=== PATIENT | male | born 1945 | race Caucasian/White ===

== ENCOUNTER 2019-01-06 18:18 | Inpatient (IN) ==
--- NOTE | 2019-01-06 19:13 | Emergency Department Note ---
Disposition Clinical Impression: Shortness of breath, COPD exacerbation, Lung mass, ADAM (acute kidney injury), Dehydration Disposition: Admitted As Inpatient Condition: Fair Time of Disposition: 22:29 SOB HPI - General Chief Complaint: ED Shortness of Breath/Dyspnea Stated Complaint: SOB Time Seen by Provider: 01/06/19 18:56 Source: patient Mode of arrival: private vehicle Limitations: no limitations Nursing Notes Reviewed: Yes Vital Signs Reviewed: Yes - History of Present Illness Patient is a 73-year-old male with past medical history including hypertension, COPD, active tobacco use, diabetes mellitus type 2, hyperlipidemia, presenting with chief complaint of shortness of breath. The patient states he has been having shortness of breath for the past 3-4 weeks. He complains of a productive cough. He also states he has lost a significant amount of weight, about 12 pounds in the past month. He was diagnosed with a pneumonia week ago. He was initially started on Levaquin which she could not tolerate secondary to hamstring problems. This stopped after stopping Levaquin. His antibiotics were switched to Omnicef and doxycycline for his primary care physician. He completed the course of antibiotics today. He also finished a course of penicillin. He still complains of shortness of breath and wheezing. He followed up with his primary care physician today, Dr. Porter, who advised the patient come to the emergency department to be treated and admitted for IV antibiotics, IV hydration and breathing treatments. He denies fevers or chills, chest pain, abdominal pain, nausea or vomiting, diarrhea. - Related Data Home Medications Medication Instructions Recorded Confirmed Allopurinol [Zyloprim] 300 mg PO DAILY 02/25/17 02/25/17 Aspirin [Lo-Dose Aspirin EC] 81 mg PO DAILY 02/25/17 02/25/17 Folic Acid 0.4 mg PO DAILY 02/25/17 02/25/17 Glimepiride [Amaryl] 2 mg PO DAILY 02/25/17 02/25/17 Loperamide HCl [Anti-Diarrheal] 2 - 4 mg PO DAILY PRN 02/25/17 02/25/17 Losartan/HCTZ [Hyzaar 50-12.5 1 tab PO DAILY 02/25/17 02/25/17 Tablet] Metoprolol [Lopressor] 50 mg PO BID 02/25/17 02/25/17 Nitroglycerin [Nitrostat] 0.4 mg SL Q5M PRN 02/25/17 02/25/17 [place]-3/Dha/Epa/Fish Oil [Fish Oil 1 cap PO DAILY 02/25/17 02/25/17 1,000 mg Softgel] Simvastatin [Zocor] 10 mg PO DAILY 02/25/17 02/25/17 Allergies Allergy/AdvReac Type Severity Reaction Status Date / Time No Known Allergies Allergy Verified 02/25/17 08:02 All systems ED: reviewed and negative except as stated. Review of Systems: As Per HPI Constitutional: Reports: weight change. Denies: fever, chills Cardiovascular: Denies: chest pain, palpitations Respiratory: Reports: cough, dyspnea Gastrointestinal: Denies: abdominal pain, nausea, vomiting, diarrhea Genitourinary: Denies: dysuria, hematuria Musculoskeletal: Denies: back pain Neurological: Reports: weakness. Denies: headache, numbness, paresthesias, confusion Past Medical History - Past Medical History Attestation: Yes The following information was validated with the patient. Source: patient Medical history: Reports: diabetes, hypertension Surgical history: Reports: carotid endarterectomy, colectomy, coronary bypass (CABG), herniorrhaphy, other Psychiatric history: Reports: no psych history - Social History Smoking Status: Current every day smoker Alcohol use: Reports: occasionally Drug use: Reports: none Physical Exam - General Limitations: no limitations General appearance: alert, in no apparent distress - Head Head exam: atraumatic, normocephalic, normal inspection - Eye Eye exam: Present: normal appearance, EOMI - ENT ENT exam: mucous membranes dry - Neck Neck exam: Present: normal inspection, trachea midline - Chest Chest inspection: Present: normal inspection, symmetric chest wall rise - Respiratory Respiratory exam: Present: other (Diminished breath sounds bilateral bases with expiratory wheezing, no accessory muscle use, no hypoxia, no conversational dyspnea) - Cardiovascular Cardiovascular exam: Present: regular rate, normal rhythm, normal heart sounds - Abdominal Exam Abdominal exam: Present: soft, Non-Tender. Absent: distention, guarding, hilary ound - Extremities Exam Extremities exam: Present: normal capillary refill. Absent: pedal edema, calf tenderness - Neurological Exam Neurological exam: Present: alert, oriented X3 - Psychiatric Psychiatric exam: Present: normal affect, normal mood - Skin Skin exam: Present: warm, dry. Absent: diaphoresis, pallor Course Vital Signs Temperature 97.5 F L 01/06/19 18:27 Pulse Rate 81 01/06/19 18:27 Respiratory Rate 18 01/06/19 18:27 Blood Pressure 123/73 01/06/19 18:27 O2 Sat by Pulse Oximetry 94 01/06/19 18:27 Temperature 97.5 F L 01/06/19 18:27 Pulse Rate 78 01/06/19 22:03 Respiratory Rate 17 01/06/19 22:11 Blood Pressure 116/53 01/06/19 22:03 O2 Sat by Pulse Oximetry 98 01/06/19 22:11 Oxygen Delivery Oxygen Delivery Room Air Shortness of Breath/Dyspnea - MDM Narrative Medical decision making narrative: Patient is presenting from his primary care physician's office for concerns of failed outpatient treatment for pneumonia. He would like the patient to be admitted for IV hydration, IV antibiotics. We will obtain repeat chest x-ray, EKG, CBC, BMP, lactate, blood cultures, troponin. We will give him DuoNeb treatments for the wheezing. He just finished a course of steroids. He will likely need azithromycin and Rocephin for IV antibiotics if he has continued pneumonia. Likely community-acquired as he has no recent hospital admissions. Not requiring oxygen at this time. 20:30 Labs and imaging were reviewed. He has a normal white blood count, no lactic acidosis. He is afebrile here. Chest x-ray showed persistent consolidation right lower lobe which could represent pneumonia. There is also a somewhat lobular appearance. Chest CTA was recommended. We will obtain a CT chest at this time. We will give the patient IV fluids for ADAM. Troponin less than 0.03, BNP normal. No acute ischemic changes on EKG. 22:00 CTA chest shows no evidence of pulmonary embolism however there is a piece subcarinal adenopathy contiguous with right perihilar mass and adenopathy which results in attenuation of bronchovascular structures of the right hilum. There is also bulky lobulated masslike consolidation within the posterior right lower lobe that is either neoplasm and/or dense airspace disease. Discussed with admitting hospitalist, Dr. Gresham, we will place the patient on IV azithromycin and Rocephin to cover for pneumonia. He will likely need to be seen by pulmonology as well as hematology/oncology. He remains medically stable at this time. - Medical Records Medical records reviewed: Yes I reviewed the patient's medical records. - Lab Data Lab results reviewed: Yes I reviewed the patient's lab results. Result diagrams: 01/06/19 19:15 01/06/19 19:15 Lab Results 01/06/19 01/06/19 01/06/19 Range/Units 19:15 19:15 19:15 WBC 11.1 (4.3-11.1) K/mcL RBC 4.33 (4.19-5.50) M/mcL Hgb 14.6 (12.9-16.9) g/dL Hct 42.2 (37.5-50.1) % MCV 97.5 (83.0-100.0) fL MCH 33.7 H (28.0-33.3) pg MCHC 34.6 (31.6-35.5) g/dL RDW 12.6 (11.5-14.5) % Plt Count 245 (140-400) K/mcL MPV 10.5 (9.4-12.4) fL Immature Gran % 0.5 (0-4) % Seg Neutrophils % 78.6 % Lymphocytes % 11.8 % Monocytes % 6.9 % Eosinophils % 1.7 % Basophils % 0.5 % Neutrophils # 8.7 (1.6-8.9) K/mcL Lymphocytes # 1.3 (0.6-4.6) K/mcL Monocytes # 0.8 (0.0-1.3) K/mcL Eosinophils # 0.2 (0.0-0.6) K/mcL Basophils # 0.1 (0.0-0.2) K/mcL Sodium 136 (136-145) mEq/L Potassium 4.2 (3.5-5.1) mEq/L Chloride 104 (98-107) mEq/L Carbon Dioxide 24 (23-29) mEq/L BUN 39 H (8-23) mg/dL Creatinine 1.56 H (0.70-1.30) mg/dL Est GFR ( Amer) 53 L (> 60) Est GFR (Non-Af Amer) 44 L (> 60) BUN/Creatinine Ratio 25 (6-26) Glucose 186 H (70-105) mg/dL Calculated Osmolality 296 (280-300) Lactic Acid 1.3 (0.5-2.2) mmol/L Calcium 9.8 (8.6-10.3) mg/dL Troponin I < 0.03 (< 0.04) ng/mL B-Natriuretic Peptide (Less than 100) pg/mL 01/06/19 Range/Units 19:15 WBC (4.3-11.1) K/mcL RBC (4.19-5.50) M/mcL Hgb (12.9-16.9) g/dL Hct (37.5-50.1) % MCV (83.0-100.0) fL MCH (28.0-33.3) pg MCHC (31.6-35.5) g/dL RDW (11.5-14.5) % Plt Count (140-400) K/mcL MPV (9.4-12.4) fL Immature Gran % (0-4) % Seg Neutrophils % % Lymphocytes % % Monocytes % % Eosinophils % % Basophils % % Neutrophils # (1.6-8.9) K/mcL Lymphocytes # (0.6-4.6) K/mcL Monocytes # (0.0-1.3) K/mcL Eosinophils # (0.0-0.6) K/mcL Basophils # (0.0-0.2) K/mcL Sodium (136-145) mEq/L Potassium (3.5-5.1) mEq/L Chloride (98-107) mEq/L Carbon Dioxide (23-29) mEq/L BUN (8-23) mg/dL Creatinine (0.70-1.30) mg/dL Est GFR ( Amer) (> 60) Est GFR (Non-Af Amer) (> 60) BUN/Creatinine Ratio (6-26) Glucose (70-105) mg/dL Calculated Osmolality (280-300) Lactic Acid (0.5-2.2) mmol/L Calcium (8.6-10.3) mg/dL Troponin I (< 0.04) ng/mL B-Natriuretic Peptide 37 (Less than 100) pg/mL - Radiology Data Radiology results reviewed: Yes I reviewed the patient's radiology results. Chest X-Ray 01/06/19 19:00 IMPRESSION: Persistent consolidation right lower lobe could represent pneumonia. However, this does have a somewhat lobular appearance. A chest CT is suggested to evaluate for a mass lesion D/ / Ryan Trevino MD / Ryan Trevino MD Interpreting Provider: Ryan Trevino MD Chest CTA 01/06/19 20:48 IMPRESSION: No evidence of pulmonary embolism. Bulky subcarinal adenopathy, contiguous with right perihilar mass/adenopathy which results in attenuation of bronchovascular structures of the right hilum. There is bulky lobulated masslike consolidation within the posterior right lower lobe, neoplasm and/or dense airspace disease. PET-CT would be helpful to further evaluate. D/ / Erinn Mccabe Cha, MD / Erinn Mccabe Cha, MD Interpreting Provider: Erinn Mccabe Cha, MD - EKG Data EKG attestation: Yes I reviewed and interpreted this EKG. EKG results narrative: EKG obtained at 191 shows sinus rhythm with heart rate 79, ME interval 177, QRS duration 86, QTC 431. No ST elevation or depression. Flattened T waves throu ghout. Attestation Statement - Attestation Attestation: I, Rony Horn, examined this patient and my medical decision-making was reviewed with the SILK WORKER/PA/Advanced Practice Nurse/Resident Physician. I agree with the documented findings, disposition and treatment plan as described except to the extent set forth below. 73-year-old male presents emergency department for evaluation of shortness of breath or cough. Patient states he states he multiple different antibiotics without improvement of symptoms. Patient states he is since emergency department by his primary care provider for for continuation of care. Chest x- ray shows possible right lower lobe pneumonia versus mass. CT was ordered for further clarification. CT showed possible neoplasm versus dense airspace disease. Patient will be admitted to the hospitalist for further care and evaluation of possible new malignancy. He was started on antibiotics emergency department. It is unlikely that this is infection however with multiple rounds of antibiotics at home, no fever, no leukocytosis. Patient is comfortable with this plan of action.
[2019-01-06 19:34] LABS: Basophils # 0.1 K/mcL (0.0-0.2); Basophils % 0.5 %; Eosinophils # 0.2 K/mcL (0.0-0.6); Eosinophils % 1.7 %; Hematocrit 42.2 % (37.5-50.1); Hemoglobin 14.6 g/dL (12.9-16.9); Immature Granulocytes % 0.5 % (0-4); Lymphocytes # 1.3 K/mcL (0.6-4.6); Lymphocytes % 11.8 %; Mean Corpuscular HGB Conc 34.6 g/dL (31.6-35.5); Mean Corpuscular Hemoglobin 33.7 pg (28.0-33.3); Mean Corpuscular Volume 97.5 fL (83.0-100.0); Mean Platelet Volume 10.5 fL (9.4-12.4); Monocytes # 0.8 K/mcL (0.0-1.3); Monocytes % 6.9 %; Neutrophils # 8.7 K/mcL (1.6-8.9); Platelet Count 245 K/mcL (140-400); Red Blood Count 4.33 M/mcL (4.19-5.50); Red Cell Distribution Width 12.6 % (11.5-14.5); Segmented Neutrophils % 78.6 %
[2019-01-06 19:51] LABS: BUN/Creatinine Ratio 25 (6-26); Blood Urea Nitrogen 39 mg/dL (8-23); Calcium 9.8 mg/dL (8.6-10.3); Carbon Dioxide 24 mEq/L (23-29); Chloride 104 mEq/L (98-107); Glucose 186 mg/dL (70-105); Osmolality,Calculated 296 (280-300); Potassium 4.2 mEq/L (3.5-5.1); Sodium 136 mEq/L (136-145); eGFR For Non-African Americans 44 (> 60)
[2019-01-06 19:52] LABS: Troponin I < 0.03 ng/mL (< 0.04)
[2019-01-06] MEDS ORDERED: Isovue-370 500 ML BOTTLE IVP ONE (20:41)
[2019-01-06] MEDS ORDERED: 0.9 % Sodium Chloride 1,000 ML IVC ONE (21:07)
[2019-01-06] MEDS ORDERED: Ipratropium/Albuterol Neb 3 ML IH ONE (21:55)
[2019-01-06] MEDS ORDERED: cefTRIAXone 1,000 MG in Water for inj. (sterile) 20 ML 10 ML IVP ONE (22:05)
[2019-01-06] MEDS ORDERED: Azithromycin 500 MG in D5% in Water 250 ML IVPB ONE (22:05)
--- NOTE | 2019-01-07 00:40 | Internal Med History&Physical ---
<Lester Lovell S - Last Filed: 01/07/19 04:14> Date of Encounter: 01/07/19 Time of Encounter: 01:12 Internal Medicine - H&P: HPI Chief complaint: SOB Admitted From: Home History of present illness: Mr. Avilez is a 73 year old male with PMH of diabetes, COPD, tobacco abuse, HLD, hypertension, and CAD. He presents from home with the chief complaint of SOB. He was recently treated as an outpatient for community acquired PNA with levaquin, which was subsequently switched to doxycycline and omnicef after he developed tendinopathy. He completed his course of abx yesterday and continued to have SOB and has been coughing up sputum. He states that he has lost about 20 lbs in the last 3 mos and that this has been unintentional. He also states that he has continued to have excessive wheezing and sputum production. He was told to come to the ER by his primary care physician. He denies any fevers/chills. He has had a diminsihed appetite. He denies chest pain, SOB, abdominal pain, or hemoptysis. In the ER he was found to have concerning findings on his XR chest and CT scan showed a possible masslike lesion in the chest. He was given a dose of rocephin and zithromax in the ER. He will be admitted to the hospital for further ev aluation. Past Med Surg Social Fam HX - Past Medical History Medical history: cardiomyopathy, diabetes, hypertension Psychiatric history: no psych history - Past Surgical History Surgical History: colectomy, coronary bypass (CABG), herniorrhaphy, vasectomy Additional surgical history: left neck parotid tumor removal, "part of colon removed" - Social History Smoking Status: Current every day smoker Packs per day: 1/2 Smokeless Tobacco Status: No Alcohol use: occasionally Drug use: none - Family History Mother Living Status: Hx Family Cancer: Yes (Cervical) Hx Family Endocrine Disorder: Yes (DM) Hx Family Autoimmune Disorders: Yes (arthritis) Father Living Status: Cause of : [place] Hx Family Cardiac Disorders: Yes ([place]) Internal Medicine - H&P: Meds Allopurinol [Zyloprim] 300 mg PO DAILY 02/25/17 [History] Aspirin [Lo-Dose Aspirin EC] 81 mg PO DAILY 02/25/17 [History] Folic Acid 200 mcg PO DAILY 02/25/17 [History] Glimepiride [Amaryl] 2 mg PO DAILY 02/25/17 [History] Loperamide HCl [Anti-Diarrheal] 2 - 4 mg PO DAILY PRN 02/25/17 [History] Losartan/HCTZ [Hyzaar 50-12.5 Tablet] 1 tab PO DAILY 02/25/17 [History] Metoprolol [Lopressor] 50 mg PO BID 02/25/17 [History] Nitroglycerin [Nitrostat] 0.4 mg SL Q5M PRN 02/25/17 [History] [place]-3/Dha/Epa/Fish Oil [Fish Oil 1,000 mg Softgel] 1 cap PO BID 02/25/17 [History] Simvastatin [Zocor] 10 mg PO HS 02/25/17 [History] Cholecalciferol (D-3) [Vitamin D] 1,000 unit PO DAILY 01/06/19 [History] Cyanocobalamin (Vitamin B-12) [Vitamin B12] 1,000 mcg PO DAILY 01/06/19 [History ] Gluc Nazario/Chondro Nazario A/Vit C/Mn [Glucosamine Chondroitin Tab] 1 tab PO BID 01/06/19 [History] Allergy/AdvReac Type Severity Reaction Status Date / Time No Known Allergies Allergy Verified 02/25/17 08:02 All Systems PM: A 10-system review of systems was performed and is negative for pertinent findings except as documented above in the HPI. - Constitutional Constitutional: anorexia, weight loss (20 lbs), no chills, no fever(s), no night sweats - EENT Eyes: no change in vision, no decreased night vision Ears: no tinnitus Nose, mouth and throat: no bleeding gums, no epistaxis - Cardiovascular Cardiovascular ROS IM: dyspnea, dyspnea on exertion, no chest pain - Respiratory Respiratory: cough, dyspnea, dyspnea on exertion, wheezing, chest congestion, excessive phlegm production - Gastrointestinal Gastrointestinal: no abdominal pain, no diarrhea, no nausea, no vomiting - Genitourinary Genitourinary ROS male: no difficulty urinating, no hematuria - Musculoskeletal Musculoskeletal ROS IM: no stiffness, no tingling - Integumentary Integumentary IM: no rash, no unusual bruising - Neurological Neurological ROS: weakness, no numbness, no tingling - Psychiatric Psychiatric: no anxiety, no depression - Hematologic/Lymphatic Hematologic/Lymphatic: no easy bleeding, no easy bruising - Constitutional Vitals: Temp Pulse Resp BP Pulse Ox 97.7 F 126 92 121/72 98 01/06/19 23:57 01/06/19 23:57 01/06/19 23:57 01/06/19 23:57 01/06/19 22:11 Exam: general - aox3, nad, laying in bed comfortably heent - ncat, MMM, no scleral icterus cardio - tacycardia, s1s2, cta no mrg lungs - rhonchi and coarse breath sounds in all lung munoz, wheezing present abd - soft, NTND, no peritoneal signs no rebound or guarding extremities - moves all extremities equally and w/o difficulty, no pitting edema present neuro - no FND, sensation and strength intact skin - intact, warm, dry psych - appropriate mood and affect Internal Med - H&P Results - Labs CBC & Chem 7: 01/06/19 19:15 01/06/19 19:15 Labs: Short CBC 01/06/19 Range/Units 19:15 WBC 11.1 (4.3-11.1) K/mcL Hgb 14.6 (12.9-16.9) g/dL Hct 42.2 (37.5-50.1) % Plt Count 245 (140-400) K/mcL Neutrophils # 8.7 (1.6-8.9) K/mcL BMP 01/06/19 19:15 Sodium 136 Potassium 4.2 Chloride 104 Carbon Dioxide 24 BUN 39 H Creatinine 1.56 H Glucose 186 H Calcium 9.8 Cardiac Enzymes 01/06/19 Range/Units 19:15 Troponin I < 0.03 (< 0.04) ng/mL - Impressions ITS Impressions Chest X-Ray 01/06/19 19:00 IMPRESSION: Persistent consolidation right lower lobe could represent pneumonia. However, this does have a somewhat lobular appearance. A chest CT is suggested to evaluate for a mass lesion D/ / Ryan Trevino MD / Ryan Trevino MD Interpreting Provider: Ryan Trevino MD Chest CTA 05/30/19 20:48 IMPRESSION: No evidence of pulmonary embolism. Bulky subcarinal adenopathy, contiguous with right perihilar mass/adenopathy which results in attenuation of bronchovascular structures of the right hilum. There is bulky lobulated masslike consolidation within the posterior right lower lobe, neoplasm and/or dense airspace disease. PET-CT would be helpful to further evaluate. D/ / Erinn Mccabe Cha, MD / Erinn Mccabe Cha, MD Interpreting Provider: Erinn Mccabe Cha, MD - Assessment and Plan (1) Pneumonia Current Visit: Yes Status: Acute Assessment and plan: Suspected CAP. Pt presented after outpatient tx failure for PNA - was on levaquin PO, which cause tendinitis and was switched to doxycycline/omnicef - finished last dose of abx yesterday morning, continued to have SOB and sputum production - endorses 20 lbs weight loss in the last 3 mos, unintentional XR chest from admission: consolidation right lower lobe could represent pneumonia, does have a somewhat lobular appearance. CT chest from admission: negative for PE Bulky subcarinal adenopathy, contiguous with right perihilar mass/adenopathy which results in attenuation of bronchovascular structures of the right hilum. There is bulky lobulated masslike consolidation within the posterior right lower lobe, neoplasm and/or dense airspace disease Differential includes infectious vs neoplastic process Plan: - blood cx pending - sputum cx pending - urine antigens pending - IV rocephin/azithromycin day 2 - pulmonology consulted - NPO in case of pulmonology intervention - duonebs q6hr - FEN: NPO - DVT prophylaxis: sq heparin - dispo: pulmonology evaluation, IV abx Qualifiers: Pneumonia type: due to unspecified organism Laterality: unspecified laterality Lung location: unspecified part of lung Qualified Code(s): J18.9 - Pneumonia, unspecified organism (2) Type 2 diabetes mellitus Current Visit: No Status: Chronic Assessment and plan: Glucose 186 on admission. Will hold home amaryl. LDSS. Accuchecks. ADA/cardiac diet when ok to eat. Qualifiers: Diabetes mellitus halfway insulin use: without chronic condition nurse use Diabetes mellitus complication status: without complication Qualified Code(s): E11.9 - Type 2 diabetes mellitus without complications (3) Hypertension Current Visit: No Status: Chronic Assessment and plan: con't home hyzaar. chronic. Qualifiers: Hypertension type: essential hypertension Qualified Code(s): I10 - Essential (primary) hypertension (4) Coronary artery disease Current Visit: No Status: Chronic Assessment and plan: s/p CABG. Continue home rx when reconciled. Qualifiers: Coronary Disease-Associated Artery/Lesion type: unspecified vessel or lesion type [place] vs. transplanted heart: [place] heart Associated angina: without angina Qualified Code(s): I25.10 - Atherosclerotic heart disease of [place] coronary artery without angina pectoris (5) Gout Current Visit: No Status: Chronic Assessment and plan: on home allopurinal. chronic. Qualifiers: Gout site: unspecified site Gout etiology: idiopathic Chronicity: chronic Presence of tophus: without tophus Qualified Code(s): M1A.00X0 - Idiopathic chronic gout, unspecified site, without tophus (tophi) (6) Shortness of breath Current Visit: Yes Status: Acute Assessment and plan: Secondary to PNA/lung mass. See above. (7) Lung mass Current Visit: Yes Status: Acute Assessment and plan: See above for PNA. (8) DVT prophylaxis Current Visit: Yes Status: Acute Assessment and plan: sq heparin (9) Tobacco abuse Current Visit: No Status: Chronic Assessment and plan: smokes 1/2 ppd x 50 yrs. counseled. - Time Spent With Patient Total time spent is greater than 50% in coordination of care (as documented) at patient's floor/unit and/or counseling patient: 25 - 35 minutes <Yogesh Gresham - Last Filed: 01/07/19 06:34> Date of Encounter: 01/07/19 Time of Encounter: 04:45 - Constitutional Constitutional: anorexia, fatigue, weakness, weight loss - EENT Eyes: no change in vision, no decreased night vision Ears: no ear pain, no tinnitus Nose, mouth and throat: no nasal obstruction, no sinus pressure, no sore throat - Cardiovascular Cardiovascular ROS IM: dyspnea, dyspnea on exertion, no chest pain - Respiratory Respiratory: cough, dyspnea, wheezing, chest congestion, excessive phlegm production - Gastrointestinal Gastrointestinal: no abdominal pain, no diarrhea, no hematemesis, no hematochezia, no melena - Genitourinary Genitourinary ROS male: no dysuria, no flank pain, no hematuria - Musculoskeletal Musculoskeletal ROS IM: no arthralgias, no back pain - Integumentary Integumentary IM: no rash, no jaundice - Neurological Neurological ROS: no dizziness, no focal weakness, no frequent falls, no headache(s) - Psychiatric Psychiatric: no anxiety, no depression - Endocrine Endocrine IM: no polydipsia, no polyuria - Allergic/Immunologic Allergic/Immunologic: no GI upset with certain foods - Constitutional Vitals: Temp Pulse Resp BP Pulse Ox 97.8 F 124 16 106/63 91 01/07/19 03:50 01/07/19 03:50 01/07/19 03:50 01/07/19 03:50 01/07/19 03:50 General appearance: Present: cooperative, mild distress, pleasant, answers questions appropriately - Head Head exam: Present: atraumatic, normal inspection - Eye Eye exam: Present: EOMI, PERRL. Absent: scleral icterus Pupils: Present: normal accommodation - ENT ENT exam: Present: mucous membranes dry, normal exam, normal oropharynx - Neck Neck exam general surgery: Present: supple, trachea midline - Respiratory Respiratory exam: Present: decreased breath sounds, prolonged expiratory phase, respiratory distress (mild to moderate), rhonchi, wheezes. Absent: chest wall tenderness - Cardiovascular Cardiovascular exam: Present: distant heart sounds, irregular rhythm, +S1, +S2, tachycardia. Absent: diastolic murmur, systolic murmur - GI/Abdominal GI/Abdominal exam: Present: normal bowel sounds, soft. Absent: guarding, hepatomegaly, mass, rebound, splenomegaly, tenderness - Extremities Exam Extremities exam: Present: normal capillary refill, warm, radial pulses palpable and symmetrical. Absent: calf tenderness, joint swelling, pedal edema, tenderness - Back Exam Back exam: Absent: CVA tenderness (L), CVA tenderness (R) - Neurological Exam Neurological exam: Present: altered, CN II-XII intact, oriented X3, strengths equal and symetr throughout - Psychiatric Psychiatric exam: Present: normal affect, normal mood - Skin Skin exam: Present: dry, intact, warm Internal Med - H&P Results - Labs CBC & Chem 7: 01/06/19 19:15 01/06/19 19:15 Labs: Short CBC 01/06/19 Range/Units 19:15 WBC 11.1 (4.3-11.1) K/mcL Hgb 14.6 (12.9-16.9) g/dL Hct 42.2 (37.5-50.1) % Plt Count 245 (140-400) K/mcL Neutrophils # 8.7 (1.6-8.9) K/mcL BMP 01/06/19 19:15 Sodium 136 Potassium 4.2 Chloride 104 Carbon Dioxide 24 BUN 39 H Creatinine 1.56 H Glucose 186 H Calcium 9.8 Cardiac Enzymes 01/06/19 Range/Units 19:15 Troponin I < 0.03 (< 0.04) ng/mL - EKG Data -: EKG Interpreted by Myself - EKG Data Prior EKG available for review: yes EKG comments: 01/07/19 06:21 initial EKG shows sinus rhythm; repeat EKG shows atrial fibrillation w RVR (HR 130's). - Impressions ITS Impressions Chest X-Ray 01/06/19 19:00 IMPRESSION: Persistent consolidation right lower lobe could represent pneumonia. However, this does have a somewhat lobular appearance. A chest CT is suggested to evaluate for a mass lesion D/ / Ryan Trevino MD / Ryan Trevino MD Interpreting Provider: Ryan Trevino MD Chest CTA 01/06/19 20:48 IMPRESSION: No evidence of pulmonary embolism. Bulky subcarinal adenopathy, contiguous with right perihilar mass/adenopathy which results in attenuation of bronchovascular structures of the right hilum. There is bulky lobulated masslike consolidation within the posterior right lower lobe, neoplasm and/or dense airspace disease. PET-CT would be helpful to further evaluate. D/ / Erinn Mccabe Cha, MD / Erinn Mccabe Cha, MD Interpreting Provider: Erinn Mccabe Cha, MD - Diagnostic Studies CT scan - chest Status: image reviewed by me (masslike consolidation in RLL) - Assessment and Plan (1) Shortness of breath Current Visit: Yes Status: Acute (2) Lung mass Current Visit: Yes Status: Acute (3) Type 2 diabetes mellitus Current Visit: No Status: Chronic Qualifiers: Diabetes mellitus chronic condition nurse insulin use: without chronic condition nurse use Diabetes mellitus complication status: without complication Qualified Code(s): E11.9 - Type 2 diabetes mellitus without complications (4) Hypertension Current Visit: No Status: Chronic Qualifiers: Hypertension type: essential hypertension Qualified Code(s): I10 - Essential (primary) hypertension (5) Coronary artery disease Current Visit: No Status: Chronic Qualifiers: Coronary Disease-Associated Artery/Lesion type: unspecified vessel or lesion type [place] vs. transplanted heart: [place] heart Associated angina: without angina Qualified Code(s): I25.10 - Atherosclerotic heart disease of [place] coronary artery without angina pectoris (6) Gout Current Visit: No Status: Chronic Qualifiers: Gout site: unspecified site Gout etiology: idiopathic Chronicity: chronic Presence of tophus: without tophus Qualified Code(s): M1A.00X0 - Idiopathic chronic gout, unspecified site, without tophus (tophi) (7) Pneumonia Current Visit: Yes Status: Acute Qualifiers: Pneumonia type: due to unspecified organism Laterality: unspecified laterality Lung location: unspecified part of lung Qualified Code(s): J18.9 - Pneumonia, unspecified organism (8) DVT prophylaxis Current Visit: Yes Status: Acute (9) Tobacco abuse Current Visit: No Status: Chronic - Time Spent With Patient Total time spent is greater than 50% in coordination of care (as documented) at patient's floor/unit and/or counseling patient: - Attending Attestation I discussed the patient HO-CHUNK, past medical history, review of systems, exam findings, and imaging findings with Dr. Lovell. I also discussed with ER staff as well. I personally reviewed his CAT scan images. I then saw and examined patient and family as well. When I saw him, he was tachycardic and appeared to be irregularly irregular. I ordered stat EKG at that time and confirmed atrial fibrillation with rapid ventricular response. I ordered low dose oral beta blo cker and chemistry analysis. I am withholding anticoagulation at this time as I suspect he will need bronchoscopy with possible transbronchial biopsy later today and/or tomorrow. Once tissue diagnosis is obtained, then I strongly recommend considering starting anticoagulation for atrial fibrillation. Regarding his respiratory symptoms, failed treatment of his pneumonia, and likely mass on CT imaging, I am concerned it might be new lung cancer. He has unintentional weight loss and anorexia which also strongly suggest underlying malignancy. We will therefore contact our pulmonology colleagues and request consultation with likely bronchoscopy and probable biopsy. I explained this to patient at length and he is in agreement with the plan. Other than my comments above and documented exam findings, I agree with Dr. Lovell's assessment and plan.
[2019-01-07] MEDS ORDERED: D5% in Water 1,000 ML IVC PRN (01:07)
[2019-01-07] MEDS ORDERED: *HR* Dextrose 50 % in Water (Syg) 50 ML SYRINGE IVP PRN (01:07)
[2019-01-07] MEDS ORDERED: Dextrose Gel 15 GM/37.5 ML TUBE PO PRN ×2 (01:07)
[2019-01-07] MEDS ORDERED: Naloxone 0.4 MG/ML INJ IVP PRN (01:07)
[2019-01-07] MEDS: Insulin LISPRO 300 UNITS/3 ML VIAL SQ SCH ×5 (04:00→20:23)
[2019-01-07] MEDS: Ipratropium/Albuterol Neb 3 ML IH SCH ×2 (04:22→04:23)
[2019-01-07] MEDS: *HR* Heparin 5,000 UNIT/ML VIAL SQ SCH ×2 (05:15→17:32)
[2019-01-07 06:53] LABS: Hemoglobin 13.9 g/dL (12.9-16.9); Mean Corpuscular HGB Conc 34.8 g/dL (31.6-35.5); Mean Corpuscular Hemoglobin 34.2 pg (28.0-33.3); Mean Corpuscular Volume 98.3 fL (83.0-100.0); Mean Platelet Volume 10.8 fL (9.4-12.4); Platelet Count 218 K/mcL (140-400); Red Blood Count 4.07 M/mcL (4.19-5.50); Red Cell Distribution Width 12.6 % (11.5-14.5)
[2019-01-07 07:14] LABS: Magnesium 1.5 mg/dL (1.6-2.6)
--- NOTE | 2019-01-07 08:48 | Anesthesia Evaluation PreOp ---
Date of Encounter: 01/07/19 Time of Encounter: 11:10 - Past History Planned Operation: EBUS Cardiac History: HTN, Hyperlipidemia, Cardiac Surgery (CABG 2001), Other (CAD) Pulmonary History: Smoker, COPD, Other (chest mass, recent pneumonia) Other Medical History: Diabetes Type II Anesthesia History: No Prior Anesthetic Complications, Past Anesthesia (CABG, left parotid mass excision, hernia, partial colectomy) Alcohol Use: occasionally Drug use: none Medications and Allergies Allopurinol [Zyloprim] 300 mg PO DAILY 02/25/17 [History] Aspirin [Lo-Dose Aspirin EC] 81 mg PO DAILY 02/25/17 [History] Folic Acid 200 mcg PO DAILY 02/25/17 [History] Glimepiride [Amaryl] 2 mg PO DAILY 02/25/17 [History] Loperamide HCl [Anti-Diarrheal] 2 - 4 mg PO DAILY PRN 02/25/17 [History] Losartan/HCTZ [Hyzaar 50-12.5 Tablet] 1 tab PO DAILY 02/25/17 [History] Metoprolol [Lopressor] 50 mg PO BID 02/25/17 [History] Nitroglycerin [Nitrostat] 0.4 mg SL Q5M PRN 02/25/17 [History] [place]-3/Dha/Epa/Fish Oil [Fish Oil 1,000 mg Softgel] 1 cap PO BID 02/25/17 [History] Simvastatin [Zocor] 10 mg PO HS 02/25/17 [History] Cholecalciferol (D-3) [Vitamin D] 1,000 unit PO DAILY 01/06/19 [History] Cyanocobalamin (Vitamin B-12) [Vitamin B12] 1,000 mcg PO DAILY 01/06/19 [History] Gluc Nazario/Chondro Nazario A/Vit C/Mn [Glucosamine Chondroitin Tab] 1 tab PO BID 01/06/19 [History] Allergy/AdvReac Type Severity Reaction Status Date / Time No Known Allergies Allergy Verified 02/25/17 08:02 - Meds/Allergy Pre-op Review Medications Reviewed: Yes Allergies Reviewed: Yes Beta Blockers on Current Med List: Yes If Beta Blockers taken, Date/Time (Last Dose taken): today 510 Anesthesia Results - Labs 01/07/19 05:48 01/07/19 05:48 - Imaging Additional studies: CTA: FINDINGS: Pulmonary Arteries: Pulmonary arteries are adequately opacified for evaluation. No evidence of intraluminal filling defect to suggest pulmonary embolism. Main pulmonary artery is normal in caliber. Mediastinum: The heart size is normal. Coronary arterial and aortic calcifications are noted. The visualized aorta is normal in caliber and course without acute abnormality. There are small calcified left hilar nodes. There is mediastinal and right hilar bulky lymphadenopathy. A right perihilar soft tissue mass/adenopathy measures up to 5.8 x 5.2 cm. Subcarinal lymphadenopathy measures up to 3.3 x 4.7 cm. The right perihilar mass causes narrowing of the the hilar structures including pulmonary arteries and bronchi. Lungs/pleura: Moderate upper lung predominant centrilobular and paraseptal emphysema is seen. Many of the airways supplying the right lower lobe show opacification, possibly with mucous secretions. There is posterior right lower lobe masslike consolidation with lobular margins. There are irregular punctate centrilobular nodules within the right middle lobe and right lower lobe suggesting pneumonitis/bronchiolitis. A juxtapleural 9 mm right middle lobe nodule is present. No effusion. The left lung is clear. Upper Abdomen: Limited images of the upper abdomen are unremarkable. Soft Tissues/Bones: No acute bone or soft tissue abnormality. CT/CT angio chest IMPRESSION: No evidence of pulmonary embolism. Bulky subcarinal adenopathy, contiguous with right perihilar mass/adenopathy which results in attenuation of bronchovascular structures of the right hilum. There is bulky lobulated masslike consolidation within the posterior right lower lobe, neoplasm and/or dense airspace disease. PET-CT would be helpful to further evaluate. Anesthesia Exam Selected Entries 01/07/19 07:04 Temperature 98.3 F Pulse Rate 107 Respiratory Rate 17 Blood Pressure 106/77 O2 Sat by Pulse Oximetry 92 Oxygen Flow Rate (LPM) 2 Weight: 90 NPO (# of Hours): 8 - HEENT Pupil (Motor): EOMI Mallampati: II Teeth: Missing Denture Type: Upper: Partial Oral Opening: Greater than 3 - BIOPROCESSING MANUFACTURING TECHNICIAN LOC: Oriented BIOPROCESSING MANUFACTURING TECHNICIAN Motor: Normal RUE, Normal LUE, Normal RLE, Normal LLE, Normal Face BIOPROCESSING MANUFACTURING TECHNICIAN Sensory: Normal: RUE, LUE, RLE, LLE, Face - Cardiac Rhythm: Irregular Murmur: None - Pulmonary Breath Sounds: bilateral Rhonchi (wheezes) Respiratory Effort: Symmetrical Anesthesia Assess/Plan ASA Score: 4 Level of consciousness: Cooperative, Oriented Anesthetic Plan: General Monitoring Plan: Standard Monitors Recovery Plan: PACU (agrees to [place])
[2019-01-07] MEDS: cefTRIAXone 2,000 MG in Water for inj. (sterile) 20 ML 20 ML IVP SCH (09:11)
[2019-01-07] MEDS: Azithromycin 500 MG in D5% in Water 250 ML IVPB SCH (09:12)
[2019-01-07] MEDS: Levalbuterol Neb 1.25 MG/3 ML IH SCH ×3 (10:36→21:54)
[2019-01-07] MEDS ORDERED: Lidocaine -MPF 2% 2 ML VIAL ONE (10:42)
[2019-01-07] MEDS ORDERED: Lidocaine -MPF 4% 5 ML AMPUL ONE (10:42)
[2019-01-07] MEDS ORDERED: *HR* Succinylcholine 200 MG/10 ML VIAL IVP ONE (10:42)
[2019-01-07] MEDS ORDERED: *HR* Propofol 200 MG/20 ML VIAL IVP ONE (10:42)
--- NOTE | 2019-01-07 12:30 | Anesthesia Evaluation Post Op ---
Date of Encounter: 01/07/19 Time of Encounter: 12:29 - Vital Signs Vital Signs: Last Vital Signs Temp 97.9 F 01/07/19 12:21 Pulse 83 01/07/19 12:21 Resp 18 01/07/19 12:21 BP 102/55 01/07/19 12:21 Pulse Ox 95 01/07/19 12:21 - Lungs Lungs: Clear Ascult./Percussion - Airway Airway: Non-obstructed - Cardiovascular Regular Rate - Mental Status Mental Status: Alert & Oriented, Answers Appropriately - Pain Pain Scale: 1 - Nausea Vomiting Nausea Vomiting: Not Present - Hydration Hydration: NPO - Discharge PostOp Status: Transfer Patient to floor
--- NOTE | 2019-01-07 12:49 | Oncology Inp Consult Note ---
<Dede Pierce - Last Filed: 01/07/19 16:31> Date of Encounter: 01/07/19 Time of Encounter: 12:00 Assessment and Plan (1) Lung mass Status: Acute Assessment and plan: CTA of the chest in ER revealed: No evidence of pulmonary embolism. Bulky subcarinal adenopathy, contiguous with right perihilar mass/adenopathy which results in attenuation of bronchovascular structures of the right hilum. There is bulky lobulated masslike consolidation within the posterior right lower lobe, neoplasm and/or dense airspace disease. Plan: Imaging is concerning for primary lung carcinoma, particularly small cell lung cancer, although non-small cell lung cancer remains possibility Consider CT abdomen/pelvis vs. outpatient PET for staging---since it has been less than 44 hours since CTA of the chest which recommend CT of abdomen and pelvis with IV contrast if he has adequate GFR some time over week or on Thursday Brain MRI wo/w contrast for staging Check LDH Further recommendations pending discussion with Dr. Monaco, discussed with on whether she would prefer to wait on pathology to result prior to discharge versus planning for outpatient treatment Given the fact that he is relatively stable with good performance status he may be able to start treatment as outpatient Further treatment recommendations pending final pathology and staging workup Treating for pneumonia managed per hospitalist group - Data of Consult Patient: new to practice Consult date: 01/07/19 Requesting Physician: Yogesh Gresham MD Primary Care Provider: Javier Porter MD - Consult Narrative Reason for consult: Mediastinal adenopathy History of present illness: Mr. Avilez is a 73 year old male with PMH of diabetes, COPD, tobacco abuse, HLD, hypertension, and CAD. He presents from home with the chief complaint of SOB. He was recently treated as an outpatient for community acquired PNA with levaquin, which was subsequently switched to doxycycline and omnicef after he developed tendinopathy. He completed his course of abx yesterday and continued to have SOB and has been coughing up sputum. He states that he has lost about 20 lbs in the last 3 month unintentionally with decreased appetite. He also states that he has continued to have excessive wheezing and sputum production. He was told to come to the ER by his primary care physician. He denies any fevers/chills, chest pain, SOB, abdominal pain, or hemoptysis. CTA of the chest in ER revealed: No evidence of pulmonary embolism. Bulky subcarinal adenopathy, contiguous with right perihilar mass/adenopathy which results in attenuation of bronchovascular structures of the right hilum. There is bulky lobulated masslike consolidation within the posterior right lower lobe, neoplasm and/or dense airspace disease. He has been admitted for further evaluation of mediastinal mass/adenopathy with pulmonary consultation as well as treatment of his postobstructive pneumonia. He is status post bronchoscopy which is concerning for malignancy on rapid onset evaluation with pathology. Patient endorses worsening shortness of breath over the past 6-8 weeks most noticeable on exertion and limiting his activity. He has also noticed persistent cough with productive phlegm, he denies hemoptysis. He had lost about 20 pounds for the past several months due to poor appetite. He denies headache or visual changes but has noticed some feelings of lightheadedness with position changes. 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 History is positive for multiple cancers including brother diagnosis of bladder cancer, brother with lung cancer, son with a circular cancer and mother with history of ovarian cancer Past Med Surg Social Fam HX - Past Medical History Medical history: cardiomyopathy, diabetes, hypertension Psychiatric history: no psych history - Past Surgical History Surgical History: colectomy, coronary bypass (CABG), herniorrhaphy, vasectomy Additional surgical history: left neck parotid tumor removal, "part of colon removed" - Social History Smoking Status: Current every day smoker Packs per day: 1/2 Smokeless Tobacco Status: No Alcohol use: occasionally Drug use: none - Family History Mother Living Status: Hx Family Cancer: Yes (Cervical) Hx Family Endocrine Disorder: Yes (DM) Hx Family Autoimmune Disorders: Yes (arthritis) Father Living Status: Cause of : [place] Hx Family Cardiac Disorders: Yes ([place]) Medications and Allergies Allopurinol [Zyloprim] 300 mg PO DAILY 02/25/17 [History] Aspirin [Lo-Dose Aspirin EC] 81 mg PO DAILY 02/25/17 [History] Folic Acid 200 mcg PO DAILY 02/25/17 [History] Glimepiride [Amaryl] 2 mg PO DAILY 02/25/17 [History] Loperamide HCl [Anti-Diarrheal] 2 - 4 mg PO DAILY PRN 02/25/17 [History] Losartan/HCTZ [Hyzaar 50-12.5 Tablet] 1 tab PO DAILY 02/25/17 [History] Metoprolol [Lopressor] 50 mg PO BID 02/25/17 [History] Nitroglycerin [Nitrostat] 0.4 mg SL Q5M PRN 02/25/17 [History] [place]-3/Dha/Epa/Fish Oil [Fish Oil 1,000 mg Softgel] 1 cap PO BID 02/25/17 [History] Simvastatin [Zocor] 10 mg PO HS 02/25/17 [History] Cholecalciferol (D-3) [Vitamin D] 1,000 unit PO DAILY 01/06/19 [History] Cyanocobalamin (Vitamin B-12) [Vitamin B12] 1,000 mcg PO DAILY 01/06/19 [History] Gluc Nazario/Chondro Nazario A/Vit C/Mn [Glucosamine Chondroitin Tab] 1 tab PO BID 01/06/19 [History] Allergy/AdvReac Type Severity Reaction Status Date / Time No Known Allergies Allergy Verified 02/25/17 08:02 Constitutional: Present: anorexia, fatigue, weakness. Absent: chills, fever(s), headache(s), night sweats Eyes: Absent: change in vision Nose, mouth and throat: Absent: dysphagia, odynophagia Cardiovascular: Absent: chest pain Respiratory: Present: cough, dyspnea, dyspnea on exertion. Absent: hemoptysis Gastrointestinal: Absent: abdominal pain, nausea, vomiting Genitourinary: Absent: dysuria, hematuria Musculoskeletal: Present: muscle weakness. Absent: back pain Integumentary: Absent: rash, wounds Neurological: Present: disequilibrium. Absent: confusion, focal weakness Psychiatric: Present: as per HPI Hematologic/Lymphatic: Present: as per HPI Oncology - Exam - Constitutional General appearance: cooperative, no acute distress, no febrile - Head Head exam: Present: atraumatic - ENT ENT exam: Present: mucous membranes moist, normal oropharynx - Respiratory Respiratory exam: Present: CTAB. Absent: respiratory distress - Cardiovascular Cardiovascular exam: Present: RRR - GI/Abdominal GI/Abdominal exam: Present: normal bowel sounds, soft. Absent: tenderness - Extremities Exam Extremities exam: Present: normal inspection. Absent: calf tenderness - Neurological Exam Neurological exam: Present: alert, oriented X3, no focal deficits, strengths equal and symetr throughout - Psychiatric Psychiatric exam: Present: normal affect, normal mood - Skin Skin exam: Present: dry, intact, normal color, warm Consult Discharge Plan - Plan Referrals: Javier Porter MD [Primary Care Provider] - (Appointment has been requested, our offices will call with an appointment time and date.) Inpatient Charges Provider: Dr. Rayna Magdaleno <[email or web address] - Last Filed: 01/08/19 09:11> Date of Encounter: 01/08/19 - Data of Consult Requesting Physician: Yogesh Gresham MD Primary Care Provider: Javier Porter MD - Consult Narrative History of present illness: Patient seen eaxmined, history and physical exam findings as above. S/p bronch bx results awaited. Due to renal insufficiency, CT abd with contrast not obtained. Will obtain a PET as outpatient is patient is d/surjit home in AM. Plan of care d.w patient and daughter in detail. I examined this patient and my medical decision-making was reviewed with the Advanced Practice Nurse, Dede Pierce. I agree with the documented findings, disposition and treatment plan as described except to the extent set forth below. Inpatient Charges Provider: Dr. Rayna Magdaleno Consult - Inpatient: [id number]
[2019-01-07] MEDS: Folic Acid 1 MG TABLET PO SCH (13:22)
[2019-01-07] MEDS: Cholecalciferol (D-3) 1,000 UNIT TABLET PO SCH (13:22)
[2019-01-07] MEDS: Losartan/HCTZ 50-12.5 TABLET PO SCH (13:22)
[2019-01-07] MEDS: Cyanocobalamin (B-12) 1,000 MCG TABLET PO SCH (13:23)
[2019-01-07] MEDS: Aspirin Enteric Coated 81 MG Tablet PO SCH (13:23)
[2019-01-07] MEDS: [UNRECOGNIZED DRUG - OTHER] PO SCH ×2 (14:50→20:23)
[2019-01-07] MEDS: CHONDRO SU A PO SCH ×2 (14:50→20:23)
[2019-01-07] MEDS: GLUC SU PO SCH ×2 (14:50→20:23)
[2019-01-07] MEDS: (Omega-3/Dha/Epa/Fish Oil [Fish Oil 1,000 Mg Softgel] PO SCH ×2 (14:50→20:23)
[2019-01-07] MEDS: VIT C PO SCH ×2 (14:50→20:23)
[2019-01-07] MEDS ORDERED: Gadolinium Contrast Agent (WT Based) IV PRN (16:32)
--- NOTE | 2019-01-07 16:35 | Pulmonology Consult Note ---
Date of Encounter: 01/07/19 Time of Encounter: 07:10 Assessment and Plan (1) Mediastinal adenopathy Current Visit: Yes Status: Acute I have reviewed CT chest result with the patient and his daughter at the bedside. I have told him this is malignant until proven otherwise and will need biopsy. I have explained to them about the bronchoscopy and how it is done and all the risks, alternatives and benefits of the procedure was explained to the patient. He is high risk with significant history of smoking and my suspicion this is will be small cell lung cancer. Patient will need to be seen by oncologist and discussed with primary team. A bronchoscopy is recommended. The procedure , risks, benefits, complications, and expected outcomes have been reviewed. Benefits of diagnosis, as well as risks to include bleeding, infection, pneumothorax which may require surgical intervention, and in a small population. The patient is aware that sometimes test is nondiagnostic. Discussed with patient and agrees to proceed. (2) Postobstructive pneumonia Current Visit: Yes Status: Suspected Patient has multiple rounds of antibiotics without success. Patient has narrowed airway from mass compression and will need bronchoscopy to make sure there is no endobronchial lesion. This will get better when he is treated for his suspected small cell lung cancer. Empiric antibiotics is acceptable. (3) Tobacco abuse Current Visit: No Status: Chronic Advised patient not to smoke again and he understand and agrees. (4) COPD exacerbation Current Visit: Yes Status: Suspected I feel his symptoms is primarily related to his underlying suspected cancer. Continue bronhodilators, steroid and keep SPO2 around 90%. Thanks for consult and will proceed with bronchoscopy. History of Present Illness Consult date: 01/07/19 Requesting physician: Lester Lovell Reason for consult: abnormal CXR/CT Chief complaint: Dyspnea History of present illness: This is a very pleasant 73 year old male with significant history of smoking tobacco and COPD. Patient present from home to the hospital with dyspnea. He said he was recently treated for pneumonia as outpatient and he received different antibiotics. He didn't feel he was getting any better and continued to have dyspnea with productive cough. He has weight loss for at least 20 lbs in the past few months and he has no hemoptysis or chest pain. He has worsening wheezing and when he had CT chest, there was significant abnormalities and pulmonary consulted for evaluation for biopsy and patient was started on treatement for community aquaired pneumonia. He has no history of cancer and he denies any fever or chills and he has no history of TB in the past. Past Med Surg Social Fam HX - Past Medical History Medical history: cardiomyopathy, diabetes, hypertension Psychiatric history: no psych history - Past Surgical History Surgical History: colectomy, coronary bypass (CABG), herniorrhaphy, vasectomy Additional surgical history: left neck parotid tumor removal, "part of colon removed" - Social History Smoking Status: Current every day smoker Packs per day: 1/2 Smokeless Tobacco Status: No Alcohol use: occasionally Drug use: none - Family History Mother Living Status: Hx Family Cancer: Yes (Cervical) Hx Family Endocrine Disorder: Yes (DM) Hx Family Autoimmune Disorders: Yes (arthritis) Father Living Status: Cause of : [place] Hx Family Cardiac Disorders: Yes ([place]) Medications and Allergies Allopurinol [Zyloprim] 300 mg PO DAILY 02/25/17 [History] Aspirin [Lo-Dose Aspirin EC] 81 mg PO DAILY 02/25/17 [History] Folic Acid 200 mcg PO DAILY 02/25/17 [History] Glimepiride [Amaryl] 2 mg PO DAILY 02/25/17 [History] Loperamide HCl [Anti-Diarrheal] 2 - 4 mg PO DAILY PRN 02/25/17 [History] Losartan/HCTZ [Hyzaar 50-12.5 Tablet] 1 tab PO DAILY 02/25/17 [History] Metoprolol [Lopressor] 50 mg PO BID 02/25/17 [History] Nitroglycerin [Nitrostat] 0.4 mg SL Q5M PRN 02/25/17 [History] [place]-3/Dha/Epa/Fish Oil [Fish Oil 1,000 mg Softgel] 1 cap PO BID 02/25/17 [History] Simvastatin [Zocor] 10 mg PO HS 02/25/17 [History] Cholecalciferol (D-3) [Vitamin D] 1,000 unit PO DAILY 01/06/19 [History] Cyanocobalamin (Vitamin B-12) [Vitamin B12] 1,000 mcg PO DAILY 01/06/19 [History] Gluc Nazario/Chondro Nazario A/Vit C/Mn [Glucosamine Chondroitin Tab] 1 tab PO BID 01/06/19 [History] Allergy/AdvReac Type Severity Reaction Status Date / Time No Known Allergies Allergy Verified 02/25/17 08:02 All Systems: The remainder of the systems were reviewed and are negative Physical Examination Vital Signs: Vital Signs, Last 4 Hours Temp Pulse Resp BP Pulse Ox 01/07/19 15:15 97.7 F 73 16 119/75 97 General appearance: no acute distress Eyes: nonicteric ENT: oropharynx dry Mallampati (class): 3 Neck: supple, no lymphadenopathy Effort: normal Inspection: normal Auscultation: right: diminished breath sounds, bilateral: rhonchi Percussion: bilateral: not dull Cardiovascular: regular rate and rhythm Gastrointestinal: normoactive bowel sounds, non-distended Extremities: no cyanosis, no edema Musculoskeletal: no deformities normal mental status, non-focal exam mood appropriate Results - Laboratory Findings CBC and BMP: 01/07/19 05:48 01/07/19 05:48 Abnormal lab findings: Abnormal lab results RBC 4.07 M/mcL (4.19-5.50) L 01/07/19 05:48 MCH 34.2 pg (28.0-33.3) H 01/07/19 05:48 Chloride 108 mEq/L (98-107) H 01/07/19 05:48 Carbon Dioxide 18 mEq/L (23-29) L 01/07/19 05:48 BUN 34 mg/dL (8-23) H 01/07/19 05:48 1.41 mg/dL (0.70-1.30) H 01/07/19 05:48 Est GFR ( Amer) 53 (> 60) L 01/06/19 19:15 Est GFR (Non-Af Amer) 49 (> 60) L 01/07/19 05:48 Glucose 178 mg/dL (70-105) H 01/07/19 05:48 POC Glucose 190 mg/dL (70-99) H 01/07/19 06:04 Magnesium 1.5 mg/dL (1.6-2.6) L 01/07/19 05:48 - Microbiology Findings Microbiology Findings: Microbiology, Last 48 Hours 01/07/19 04:53 Legionella Antigen - Final Urine,Clean Catch Streptococcus pneumoniae Antigen (M - Final 01/07/19 01:50 Sputum Culture - Final Sputum 01/07/19 00:01 Blood Culture - Preliminary Peripheral Venipuncture Culture is incubating and being continuously monitored for growth. Final report to follow. 01/06/19 19:15 Blood Culture - Preliminary Peripheral Venipuncture Culture is incubating and being continuously monitored for growth. Final report to follow. - Diagnostic Findings CT scan - chest: report reviewed, image reviewed - Clinical Findings Intake & Output: Intake & Output 01/07/19 01/07/19 01/07/19 07:59 15:59 23:59 Intake Total 1260 / 1634 374 / 1634 Balance 1260 / 1634 374 / 1634 Weight 90 kg Consult Discharge Plan - Plan Referrals: Javier Porter MD [Primary Care Provider] - (Appointment has been requested, our offices will call with an appointment time and date.)
[2019-01-07 18:06] LABS: Appearance of Body Fluid Cloudy (Clear); Volume of Body Fluid 22 mL
--- NOTE | 2019-01-07 19:31 | Event Note ---
Date of Encounter: 01/07/19 Time of Encounter: 19:00 Final path is pending. Family member bedside, reported patient is in MRI procedure and not seen today. CT abd to be completed. Will return back tomorrow to complete consult.
--- NOTE | 2019-01-07 21:10 | Electrocardiograph Report ---
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
--- NOTE | 2019-01-07 21:30 | Electrocardiograph Report ---
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
[2019-01-08] MEDS: Levalbuterol Neb 1.25 MG/3 ML IH SCH ×4 (03:40→22:08)
[2019-01-08] MEDS: *HR* Heparin 5,000 UNIT/ML VIAL SQ SCH ×2 (05:48→17:20)
[2019-01-08 06:39] LABS: Magnesium 1.8 mg/dL (1.6-2.6); Potassium 4.1 mEq/L (3.5-5.1)
[2019-01-08] MEDS: Losartan/HCTZ 50-12.5 TABLET PO SCH (08:49)
[2019-01-08] MEDS: Cyanocobalamin (B-12) 1,000 MCG TABLET PO SCH (08:49)
[2019-01-08] MEDS: Aspirin Enteric Coated 81 MG Tablet PO SCH (08:50)
[2019-01-08] MEDS: Cholecalciferol (D-3) 1,000 UNIT TABLET PO SCH (08:50)
[2019-01-08] MEDS: Folic Acid 1 MG TABLET PO SCH (08:50)
[2019-01-08] MEDS: cefTRIAXone 2,000 MG in Water for inj. (sterile) 20 ML 20 ML IVP SCH (08:50)
[2019-01-08] MEDS: Azithromycin 500 MG in D5% in Water 250 ML IVPB SCH (08:51)
[2019-01-08] MEDS: Insulin LISPRO 300 UNITS/3 ML VIAL SQ SCH ×4 (08:52→21:21)
[2019-01-08] MEDS: CHONDRO SU A PO SCH ×2 (09:32→21:20)
[2019-01-08] MEDS: [UNRECOGNIZED DRUG - OTHER] PO SCH ×2 (09:32→21:20)
[2019-01-08] MEDS: GLUC SU PO SCH ×2 (09:32→21:20)
[2019-01-08] MEDS: (Omega-3/Dha/Epa/Fish Oil [Fish Oil 1,000 Mg Softgel] PO SCH ×2 (09:32→21:20)
[2019-01-08] MEDS: VIT C PO SCH ×2 (09:32→21:20)
--- NOTE | 2019-01-08 10:27 | Internal Med Progress Note ---
Hospitalist Progress Note - Encounter Date of Encounter: 01/08/19 Time of Encounter: 10:25 - Subjective Interval History: Patient seen and examined in the room. Cough and shortness breath have improved. Overnight, patient has no fever, chills, or night sweats. - Exam Vitals: Temp Pulse Resp BP Pulse Ox 97.3 F L 66 18 105/50 90 01/08/19 07:56 01/08/19 07:56 01/08/19 07:56 01/08/19 07:56 01/08/19 07:56 Exam: general - aox3, nad, laying in bed comfortably heent - ncat, MMM, no scleral icterus cardio - tacycardia, s1s2, cta no mrg lungs - rhonchi and coarse breath sounds in all lung munoz, wheezing present abd - soft, NTND, no peritoneal signs no rebound or guarding extremities - moves all extremities equally and w/o difficulty, no pitting edema present neuro - no FND, sensation and strength intact skin - intact, warm, dry psych - appropriate mood and affect - Assessment and Plan (1) Lung mass Current Visit: Yes Status: Acute Assessment and Plan: 3-year-old gentleman with known history of smoking and COPD presented with cough and shortness breath. He was treated for pneumonia as outpatient without relief of symptoms. CT of the chest showed diffuse enlarged mediastinal lymph nodes and the left-sided [place]. He underwent bronchoscopy with biopsy by pulmonology on 01/07, preliminary report was suspicious for SCLC. Oncology was consulted. Staging study including brain MRI and the abdominal past scan was ordered by oncology. MRI of brain is negative for metastases. Patient is scheduled oncology follow-up as outpatient. (2) Postobstructive pneumonia Current Visit: Yes Status: Suspected Assessment and Plan: Patient was empirically treated with IV antibiotics with IV Rocephin and azithromycin. Bronchoscopy with lavage final results are pending. (3) Type 2 diabetes mellitus Current Visit: No Status: Chronic Assessment and Plan: Continue insulin sliding scale. (4) Hypertension Current Visit: No Status: Chronic Assessment and Plan: con't home hyzaar. chronic. (5) Coronary artery disease Current Visit: No Status: Chronic Assessment and Plan: s/p CABG. Continue home rx. (6) Gout Current Visit: No Status: Chronic Assessment and Plan: on home allopurinal. chronic. (7) Tobacco abuse Current Visit: No Status: Chronic Assessment and Plan: smokes 1/2 ppd x 50 yrs. counseled. (8) DVT prophylaxis Current Visit: Yes Status: Acute Assessment and Plan: sq heparin - Time Spent with Patient Total time spent is greater than 50% in coordination of care (as documented) at patient's floor/unit and/or counseling patient: Greater than 35 minutes Plan of Care Discussed with: patient Internal Medicine: Result - Labs CBC & Chem 7: 01/07/19 05:48 01/08/19 06:07 Labs: BMP 01/08/19 06:07 Sodium 135 L Potassium 4.1 Chloride 107 Carbon Dioxide 21 L BUN 31 H Creatinine 1.44 H Glucose 151 H Calcium 9.0 - Impressions Impressions Brain MRI 01/07/19 16:32 IMPRESSION: No evidence of metastatic disease. 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 transplanted heart: [place] heart Associated angina: without angina Qualified Code(s): I25.10 - Atherosclerotic heart disease of [place] coronary artery without angina pectoris (6) Gout Qualifiers: Gout site: unspecified site Gout etiology: idiopathic Chronicity: chronic Presence of tophus: without tophus Qualified Code(s): M1A.00X0 - Idiopathic chronic gout, unspecified site, without tophus (tophi)
--- NOTE | 2019-01-08 11:30 | Pulmonology Progress Note ---
Date of Encounter: 01/08/19 Time of Encounter: 09:00 Assessment and Plan (1) COPD exacerbation Current Visit: Yes Status: Suspected Patient is doing well on this bronchodilators, steroids on discharge syndrome on albuterol, Symbicort, 2 week steroid taper. Pulmonary will sign off please call with questions. (2) Lung mass Current Visit: Yes Status: Acute Patient has hilar mass with the significant mediastinal lymphadenopathy in the background With Transbronchial Needle Aspiration Showed Preliminary Small cell Lung Cancer Waiting for Full Pathology evaluation. (3) Mediastinal adenopathy Current Visit: Yes Status: Acute Patient has significant mediastinal lymphadenopathy with hilar mass and mediastinal adenopathy compressing the surrounding bronchovascular structure patient will need urgent chemotherapy/radiotherapy oncology following patient will be establish as an outpatient with oncology. (4) Postobstructive pneumonia Current Visit: Yes Status: Suspected Patient BAL is not growing any microorganism will send him home on 10 days of doxycycline please warn the patient about photosensitivity. Subjective Principal diagnosis: Lung Cancer with prelim read small cell Interval history: Patient had endobronchial ultrasound with transbronchial needle aspiration of subcarinal lymph node with preliminary showing a small cell carcinoma waiting for the full pathology. Oncology following patient symptoms are back to baseline not shortness of breath except for some cough on lying down patient denies any hemoptysis patient denies any chest pain not sputum production, according to patient symptoms are back to baseline. Objective PUL Vital signs: Last Vital Signs Temp 97.3 F L 01/08/19 07:56 Pulse 66 01/08/19 07:56 Resp 18 01/08/19 07:56 BP 105/50 01/08/19 07:56 Pulse Ox 90 01/08/19 07:56 General appearance: no acute distress Auscultation: right: diminished breath sounds (Mildly diminished), bilateral: clear Cardiovascular: regular rate and rhythm Gastrointestinal: normoactive bowel sounds normal mental status, non-focal exam mood appropriate, affect normal Results - Laboratory Findings CBC and BMP: 01/07/19 05:48 01/08/19 06:07 Abnormal lab findings: Abnormal lab results RBC 4.07 M/mcL (4.19-5.50) L 01/07/19 05:48 MCH 34.2 pg (28.0-33.3) H 01/07/19 05:48 Sodium 135 mEq/L (136-145) L 01/08/19 06:07 Chloride 108 mEq/L (98-107) H 01/07/19 05:48 Carbon Dioxide 21 mEq/L (23-29) L 01/08/19 06:07 BUN 31 mg/dL (8-23) H 01/08/19 06:07 1.44 mg/dL (0.70-1.30) H 01/08/19 06:07 Est GFR ( Amer) 58 (> 60) L 01/08/19 06:07 Est GFR (Non-Af Amer) 48 (> 60) L 01/08/19 06:07 Glucose 151 mg/dL (70-105) H 01/08/19 06:07 POC Glucose 143 mg/dL (70-99) H 01/07/19 20:19 Magnesium 1.5 mg/dL (1.6-2.6) L 01/07/19 05:48 380 Units/L (140-271) H 01/07/19 17:19 Fluid Appearance Cloudy (Clear) A 01/07/19 11:40 - Microbiology Findings Microbiology Findings: Microbiology, Last 48 Hours 01/07/19 11:40 Respiratory Culture - Preliminary Left Upper Lobe Lung Culture is incubating. 01/07/19 11:40 Fungal Culture - Preliminary Left Upper Lobe Lung Culture is incubating. 01/07/19 04:53 Legionella Antigen - Final Urine,Clean Catch Streptococcus pneumoniae Antigen (M - Final 01/07/19 01:50 Sputum Culture - Final Sputum 01/07/19 00:01 Blood Culture - Preliminary Peripheral Venipuncture Culture is incubating and being continuously monitored for growth. Final report to follow. 01/06/19 19:15 Blood Culture - Preliminary Peripheral Venipuncture Culture is incubating and being continuously monitored for growth. Final report to follow. - Clinical Findings Intake & Output: Intake & Output 01/07/19 01/08/19 01/08/19 23:59 07:59 15:59 Intake Total 620 / 620 Balance 620 / 620 Weight 91.1 kg Consult Discharge Plan - Plan Referrals: Javier Porter MD [Primary Care Provider] - (Appointment has been requested, our offices will call with an appointment time and date.)
[2019-01-09] MEDS: Levalbuterol Neb 1.25 MG/3 ML IH SCH ×2 (03:27→10:09)
[2019-01-09] MEDS: *HR* Heparin 5,000 UNIT/ML VIAL SQ SCH (05:10)
[2019-01-09 08:05] VITALS: BP 116/71
[2019-01-09] MEDS: Losartan/HCTZ 50-12.5 TABLET PO SCH (08:44)
[2019-01-09] MEDS: Cyanocobalamin (B-12) 1,000 MCG TABLET PO SCH (08:44)
[2019-01-09] MEDS: Folic Acid 1 MG TABLET PO SCH (08:44)
[2019-01-09] MEDS: Cholecalciferol (D-3) 1,000 UNIT TABLET PO SCH (08:44)
[2019-01-09] MEDS: Azithromycin 500 MG in D5% in Water 250 ML IVPB SCH (08:45)
[2019-01-09] MEDS: Aspirin Enteric Coated 81 MG Tablet PO SCH (08:45)
[2019-01-09] MEDS: cefTRIAXone 2,000 MG in Water for inj. (sterile) 20 ML 20 ML IVP SCH (08:46)
[2019-01-09] MEDS: Insulin LISPRO 300 UNITS/3 ML VIAL SQ SCH (08:47)
[2019-01-09] MEDS: VIT C PO SCH (08:49)
[2019-01-09] MEDS: CHONDRO SU A PO SCH (08:49)
[2019-01-09] MEDS: GLUC SU PO SCH (08:49)
[2019-01-09] MEDS: (Omega-3/Dha/Epa/Fish Oil [Fish Oil 1,000 Mg Softgel] PO SCH (08:49)
[2019-01-09] MEDS: [UNRECOGNIZED DRUG - OTHER] PO SCH (08:49)
--- NOTE | 2019-01-09 09:45 | Discharge Summary ---
- NOTES TO OUTPATIENT PROVIDER Notes to Outpatient Provider: f/u with oncology within 1-2 weeks but after 01/12. F/u with Pulm within 2 weeks. F/u with PCP within a week. Orders not resulted at time of discharge: Pending orders 01/06/19 19:15 Culture,Blood [BC] Stat 01/07/19 11:40 AFB Culture, Respiratory [TB] Routine AFB Smear [TB] Routine Culture,Respiratory [RM] Routine Fungal Culture [MYC] Routine 01/07/19 11:51 Cytology [PTH] Routine 01/09/19 04:00 BMP [Basic Metabolic Panel] AM 0400 Complete Blood Count [HEME] AM 0400 Date of Encounter: 01/09/19 Time of Encounter: 09:41 - Discharge Diagnosis (1) Lung mass Priority: Primary Status: Acute (2) Postobstructive pneumonia Priority: Primary Status: Suspected (3) Type 2 diabetes mellitus Priority: Secondary Status: Chronic Qualifiers: Diabetes mellitus residential insulin use: without residential use Diabetes mellitus complication status: without complication Qualified Code(s): E11.9 - Type 2 diabetes mellitus without complications (4) Hypertension Priority: Secondary Status: Chronic Qualifiers: Hypertension type: essential hypertension Qualified Code(s): I10 - Essential (primary) hypertension (5) Coronary artery disease Priority: Secondary Status: Chronic Qualifiers: Coronary Disease-Associated Artery/Lesion type: unspecified vessel or lesion type [place] vs. transplanted heart: [place] heart Associated angina: without angina Qualified Code(s): I25.10 - Atherosclerotic heart disease of [place] coronary artery without angina pectoris (6) Gout Priority: Secondary Status: Chronic Qualifiers: Gout site: unspecified site Gout etiology: idiopathic Chronicity: chronic Presence of tophus: without tophus Qualified Code(s): M1A.00X0 - Idiopathic chronic gout, unspecified site, without tophus (tophi) (7) Tobacco abuse Priority: Secondary Status: Chronic (8) DVT prophylaxis Priority: Primary Status: Acute Hospital course: Mr. Avilez is a 73 year old male with PMH of diabetes, COPD, tobacco abuse, HLD, hypertension, and CAD. He presents from home with the chief complaint of SOB. He was recently treated as an outpatient for community acquired PNA with levaquin, which was subsequently switched to doxycycline and omnicef after he developed tendinopathy. He completed his course of abx yesterday and continued to have SOB and has been coughing up sputum. He states that he has lost about 20 lbs in the last 3 mos and that this has been unintentional. He also states that he has continued to have excessive wheezing and sputum production. He was told to come to the ER by his primary care physician. He denies any fevers/chills. He has had a diminsihed appetite. He denies chest pain, SOB, abdominal pain, or hemoptysis. In the ER he was found to have concerning findings on his XR chest and CT scan showed a possible masslike lesion in the chest. He was given a dose of rocephin and zithromax in the ER. A bronchoscopy was performed on 01/07 and a biopsy was obtained, preliminary pathology showed possible small cell lung cancer. Postobstructive pneumonia was suspected, IV antibiotics with Rocephin and azithromycin were continued. Oncology was consulted, tumor staging workup was initiated. MRI of brain has no metastasis. Oncology plan to do a PET scan of the abdomen and pelvis on the common week. After 3 days of treatment, patient's symptoms have improved, after discussed with patient and her family, we will discharge patient home today. He was qualified for home oxygen, we will set up for home oxygen. He was instructed to continue to take oral antibiotics as prescribed, follow up with oncology, pulmonology, and PCP as scheduled. Discharge discussed with: patient, family Time spent discussing smoking cessation with patient: more than 10 minutes - Time Spent with Patient Total time spent providing and/or coordinating discharge services: Time spent: Greater than 30 minutes - Discharge Medications Prescriptions: New Amoxicillin/Clavulanate [Augmentin] 1 mg PO BID #10 tablet Albuterol Sulfate [Albuterol Inhaler] 2 puff IH Q4HR #1 hfa.aer.ad Continued Allopurinol [Zyloprim] 300 mg PO DAILY Aspirin [Lo-Dose Aspirin EC] 81 mg PO DAILY Folic Acid 200 mcg PO DAILY Glimepiride [Amaryl] 2 mg PO DAILY Loperamide HCl [Anti-Diarrheal] 2 - 4 mg PO DAILY PRN PRN Reason: Diarrhea Losartan/HCTZ [Hyzaar 50-12.5 Tablet] 1 tab PO DAILY Metoprolol [Lopressor] 50 mg PO BID Nitroglycerin [Nitrostat] 0.4 mg SL Q5M PRN PRN Reason: CHEST PAIN [place]-3/Dha/Epa/Fish Oil [Fish Oil 1,000 mg Softgel] 1 cap PO BID Simvastatin [Zocor] 10 mg PO HS Cyanocobalamin (Vitamin B-12) [Vitamin B12] 1,000 mcg PO DAILY Cholecalciferol (D-3) [Vitamin D] 1,000 unit PO DAILY Gluc Nazario/Chondro Nazario A/Vit C/Mn [Glucosamine Chondroitin Tab] 1 tab PO BID Home Medications: Allopurinol [Zyloprim] 300 mg PO DAILY 02/25/17 [History] Aspirin [Lo-Dose Aspirin EC] 81 mg PO DAILY 02/25/17 [History] Folic Acid 200 mcg PO DAILY 02/25/17 [History] Glimepiride [Amaryl] 2 mg PO DAILY 02/25/17 [History] Loperamide HCl [Anti-Diarrheal] 2 - 4 mg PO DAILY PRN 02/25/17 [History] Losartan/HCTZ [Hyzaar 50-12.5 Tablet] 1 tab PO DAILY 02/25/17 [History] Metoprolol [Lopressor] 50 mg PO BID 02/25/17 [History] Nitroglycerin [Nitrostat] 0.4 mg SL Q5M PRN 02/25/17 [History] [place]-3/Dha/Epa/Fish Oil [Fish Oil 1,000 mg Softgel] 1 cap PO BID 02/25/17 [History] Simvastatin [Zocor] 10 mg PO HS 02/25/17 [History] Cholecalciferol (D-3) [Vitamin D] 1,000 unit PO DAILY 01/06/19 [History] Cyanocobalamin (Vitamin B-12) [Vitamin B12] 1,000 mcg PO DAILY 01/06/19 [History] Gluc Nazario/Chondro Nazario A/Vit C/Mn [Glucosamine Chondroitin Tab] 1 tab PO BID 01/06/19 [History] Albuterol Sulfate [Albuterol Inhaler] 2 puff IH Q4HR #1 hfa.aer.ad 01/09/19 [Rx] Amoxicillin/Clavulanate [Augmentin] 1 mg PO BID #10 tablet 01/09/19 [Rx] Allergies/Adverse Reactions: Allergy/AdvReac Type Severity Reaction Status Date / Time No Known Allergies Allergy Verified 02/25/17 08:02 Date of admission: 01/07/19 06:01 Primary care physician: Javier Porter MD Consults: 01/07/19 00:50 Consult to Pulmonology [CONS] Routine Consulting Provider: [facility] Reason for Consult: lung mass Call Completed: No 01/07/19 11:56 Consult to Nurse Navigator [CONS] Routine Comment: pn 01/07/19 12:08 Consult to Oncology Hematology [CONS] Routine Consulting Provider: Oncology [facility] Reason for Consult: SCLC Call Completed: Yes Anticipated date of discharge: 01/09/19 - Constitutional Vitals: Temp Pulse Resp BP Pulse Ox 97.5 F L 69 14 116/71 91 01/09/19 08:03 01/09/19 08:03 01/09/19 08:03 01/09/19 08:03 01/09/19 08:03 General appearance: Present: cooperative, mild distress, pleasant, answers questions appropriately Exam: general - aox3, nad, laying in bed comfortably heent - ncat, MMM, no scleral icterus cardio - tacycardia, s1s2, cta no mrg lungs - rhonchi and coarse breath sounds in all lung munoz, wheezing present abd - soft, NTND, no peritoneal signs no rebound or guarding extremities - moves all extremities equally and w/o difficulty, no pitting edema present neuro - no FND, sensation and strength intact skin - intact, warm, dry psych - appropriate mood and affect - Patient Status Disposition: Home, Self-Care Condition: Fair Functional capacity at discharge: independent ambulation Overall status at discharge: patient is back to baseline - Discharge Instructions Follow Up With: Javier Porter MD [Primary Care Provider] - (Appointment has been requested, our offices will call with an appointment time and date.) - Diet and Activity Activity: resume usual activities as tolerated Diet: diabetic diet, low fat, low cholesterol, low salt diet
== END 2019-01-09 11:03 | disposition home or self-care (01) | DRG 180 ==
LOC: EMEROOARM 18:18 → 3BNU 18:18
PROVIDERS: ADMIT Pediatrics; ATTEND Pediatrics